=== PATIENT | female | born 1975 | race Caucasian/White ===

== ENCOUNTER 2022-11-18 11:37 | Inpatient (IN) | payer BC ==
[~2022-11-18] VITALS: Ht 162.6 cm; Wt 66.2 kg
[2022-11-18] MEDS ORDERED: ALPRAZOLAM0.5 MG (15:50)
[2022-11-21] MEDS ORDERED: DOLOGESIC 500-1 EACH PO (19:07)
== END 2022-11-21 20:51 | disposition home or self-care (01) | DRG 951 ==
LOC: MEDI 11:37
PROVIDERS: ADMIT Internal Medicine Hematology & Oncology; ATTEND Internal Medicine Hematology & Oncology
DX: U09.9 Post COVID-19 condition, unspecified (principal); D80.1 Nonfamilial hypogammaglobulinemia; F41.8 Other specified anxiety disorders; E86.0 Dehydration
CPT/HCPCS: 240